=== PATIENT | female | born 1970 | race African-American/Black ===

== ENCOUNTER 2018-01-20 08:01 | Emergency (ER) | payer MEDICAID ==
[~2018-01-20] VITALS: Ht 157.5 cm; Wt 78.2 kg
--- NOTE | 2018-01-20 08:09 | NUR ---
PT AMBULATES TO BED 4
[2018-01-20 08:10] VITALS: BP 146/82
--- NOTE | 2018-01-20 08:15 | NUR ---
47Y/F C/O LLQ PAIN WITH FEELING DIFFUSE BLOATING ALL OVER THE ABDOMEN X 4 DAYS; DENIES NVD; WAS SEEN AT [facility] FOR DIVIRTICULITIS ON 12/23/17 WITH PRESCRIBE "FLAGYL AND MAYBE CIPRO" ON WHICH SHE IS DONE TAKING; HAS BEEN TAKING EX TYLENOL AND GAS X WITH NO RELIEF. PT IS AAOX4, VSS AT THIS TIME, ACTIVE BS X 4 QUAD, LBM THIS MORNING, TENDER WITH TOUCH, BED DOWN, BEDRAIL UP X 1, ER MD AWARE AND NOTIFIED OF PT STATUS. HX; GASTRITIS, HTN, CPOD RX; DONE WITH PRESCRIPTIONS, ADVAIR, LISINOPRIL
[2018-01-20] MEDS ORDERED: NACL 0.9% 1,000 ML IV ONE (08:20)
[2018-01-20] MEDS ORDERED: PANTOPRAZOLE 40 MG INJ VIAL IVP ONE (08:20)
--- NOTE | 2018-01-20 08:22 | NUR ---
Patient being evaluated by physician at bedside.
[2018-01-20 08:35] LABS: HEMATOCRIT 32.7 % (36-48); HEMOGLOBIN 10.2 g/dL (12.0-16.0); MEAN CORPUSCULAR HEMOGLOBIN 26 pg (27-31); MEAN CORPUSCULAR HGB CONC 31 g/dL (33-37); MEAN CORPUSCULAR VOLUME 84.5 fL (80-94); PLATELET COUNT (AUTO) 335 K/uL (140-450); RED BLOOD CELL COUNT(AUTO) 3.87 MIL/uL (4.20-5.40); RED CELL DISTRIBUTION WIDTH 13.4 % (11.6-13.7); WHITE BLOOD COUNT (AUTO) 12.2 K/uL (4.8-10.8)
--- NOTE | 2018-01-20 08:37 | NUR ---
PT TAKEN TO X-RAY
--- NOTE | 2018-01-20 08:43 | NUR ---
PT RETURNED FROM CT
[2018-01-20 08:44] LABS: ANION GAP 13.8 (8-16); CARBON DIOXIDE 27.5 mmol/L (21-32); CREATININE 0.9 mg/dL (0.6-1.3); POTASSIUM 4.3 mmol/L (3.5-5.1)
[2018-01-20 08:50] LABS: ALBUMIN 3.2 g/dL (3.4-5.0); TOTAL BILIRUBIN 0.3 mg/dL (0.0-1.0)
[2018-01-20 08:56] LABS: BASOPHILS % (MANUAL) 0 % (0-2); EOSINOPHILS % (MANUAL) 0 % (0-4); LYMPHOCYTES % (MANUAL) 10 % (20-46); MONOCYTES % (MANUAL) 3 % (5-12)
[2018-01-20] MEDS ORDERED: sulfaSALAzine 500 MG TAB PO ONE (09:30)
[2018-01-20] MEDS ORDERED: metroNIDAZOLE 500 MG/NS PREMIX 100 ML IV ONE (09:30)
[2018-01-20 11:25] VITALS: BP 135/80
--- NOTE | 2018-01-20 11:25 | NUR ---
Patient discharged with v/s stable. Written and verbal after care instructions given and explained. Patient alert, oriented and verbalized understanding of instructions. Ambulatory with steady gait. All questions addressed prior to discharge. ID band removed. Patient advised to follow up with PMD. Rx of FLAGYL, MOTRIN, CIPRO given. Patient educated on indication of medication including possible reaction and side effects. Opportunity to ask questions provided and answered.
== END 2018-01-20 11:25 | disposition home or self-care (01) ==
LOC: MED 08:01
DX: K57.92 Diverticulitis of intestine, part unspecified, without perforation or abscess without bleeding (principal); I10 Essential (primary) hypertension
CPT/HCPCS: 36415; 74176; 80053; 81002; 81025; 85025; 96365; 96375; 99284; C9113; J3490; J7030

== ENCOUNTER 2018-03-06 08:41 | Emergency (ER) | payer BC, MEDICAID ==
[~2018-03-06] VITALS: Ht 157.5 cm; Wt 74.2 kg
[2018-03-06 08:50] VITALS: BP 138/87
[2018-03-06] MEDS ORDERED: predniSONE 20 MG TAB PO ONE (09:05)
[2018-03-06] MEDS ORDERED: ALBUTEROL SULFATE/IPRATROPIU 3 ML SOL IH ONE (09:05)
[2018-03-06] MEDS ORDERED: ALBUTEROL 0.083% 2.5 MG/3 ML NEBU INH ONE (09:05)
[2018-03-06 09:44] VITALS: BP 126/82
== END 2018-03-06 09:45 | disposition home or self-care (01) ==
LOC: MED 08:41
DX: J44.1 Chronic obstructive pulmonary disease with (acute) exacerbation (principal); I10 Essential (primary) hypertension; Z90.710 Acquired absence of both cervix and uterus
CPT/HCPCS: 81002; 81025; 94640; 99283; J7512; J7613; J7620

== ENCOUNTER 2018-06-25 08:05 | Emergency (ER) | payer BC, MEDICAID ==
[~2018-06-25] VITALS: Ht 152.4 cm; Wt 78.0 kg
[2018-06-25 08:11] VITALS: BP 140/90
[2018-06-25] MEDS ORDERED: BENA20TA PO (08:15)
[2018-06-25] MEDS ORDERED: HYDR25TA32 PO (08:16)
--- NOTE | 2018-06-25 08:28 | NUR ---
C/O LLQ/LL BACK PAIN 8/10 DULL/ACHEY X2 DAYS. PT DENIED N/V/D/FEVER, DYSURIA, FREQUENCY. PT REPORTS LBM YESTERDAY WAS HARD. PT HAS A HX OF DIVERTICULOSIS SINCE 2011. PT REPORTS TAKING ADVIL & TYLENOL FOR PAIN WITH NO RELIEF. BOWEL SOUNDS PRESENT X4, ABD IS SOFT/FLAT & TENDER TO LLQ. PT GIVEN GOWN TO CHANGE INTO, BED IN LOW POSITION.
--- NOTE | 2018-06-25 08:35 | NUR ---
ERMD AT BEDSIDE
--- NOTE | 2018-06-25 08:49 | NUR ---
PT SITTING UP IN BED, SPEAKING WITH TELEPSYCH NOW.
--- NOTE | 2018-06-25 08:49 | NUR ---
PT LEFT TO XRAY
--- NOTE | 2018-06-25 08:49 | NUR ---
URINE COLLECTED AND SENT TO LAB
--- NOTE | 2018-06-25 08:58 | NUR ---
PT RETURNED FROM XRAY, LAB AT BEDSIDE
[2018-06-25 09:11] LABS: BASOPHILS % (AUTO) 0.5 % (0.0-2.0); EOSINOPHILS # (AUTO) 0.4 K/uL (0-0.4); HEMATOCRIT 32.6 % (36-48); HEMOGLOBIN 10.5 g/dL (12.0-16.0); LYMPHOCYTES # (AUTO) 1.6 K/uL (2.5-16.5); LYMPHOCYTES % (AUTO) 23.3 % (20.5-51.1); MEAN CORPUSCULAR HEMOGLOBIN 28 pg (27-31); MEAN CORPUSCULAR HGB CONC 32 g/dL (33-37); MEAN CORPUSCULAR VOLUME 85.1 fL (80-94); MONOCYTES # (AUTO) 0.3 K/uL (0.8-1.0); MONOCYTES % (AUTO) 4.4 % (1.7-9.3); NEUTROPHILS # (AUTO) 4.7 K/uL (1.8-7.7); NEUTROPHILS % (AUTO) 66.8 % (42.2-75.2); PLATELET COUNT (AUTO) 347 K/uL (140-450); RED BLOOD CELL COUNT(AUTO) 3.83 MIL/uL (4.20-5.40); RED CELL DISTRIBUTION WIDTH 12.6 % (11.6-13.7)
[2018-06-25 09:12] LABS: APPEARANCE,URINE CLEAR (CLEAR); BILIRUBIN,URINE NEGATIVE (NEGATIVE); BLOOD, URINE NEGATIVE (NEGATIVE); LEUKOCYTE ESTERASE ,URINE NEGATIVE (NEGATIVE); NITRITE, URINE NEGATIVE (NEGATIVE); UGLUCOSE NEGATIVE (NEGATIVE)
[2018-06-25 09:27] LABS: ANION GAP 10.4 (8-16); CARBON DIOXIDE 26.5 mmol/L (21-32); CREATININE 0.9 mg/dL (0.6-1.3); POTASSIUM 3.9 mmol/L (3.5-5.1)
[2018-06-25 09:33] LABS: ALBUMIN 3.4 g/dL (3.4-5.0); TOTAL BILIRUBIN 0.2 mg/dL (0.0-1.0)
[2018-06-25 09:55] LABS: COLOR,URINE YELLOW (YELLOW); RBC,URINE NONE SEEN /HPF (0-5); WBC,URINE 0-5 /HPF (0-5)
--- NOTE | 2018-06-25 10:13 | NUR ---
PT RESTING IN BED, NO NEW NEEDS AT THIS TIME. PAIN IS 5/10 AT THIS TIME.
[2018-06-25] MEDS ORDERED: ACETAMINOPHEN 325 MG TAB PO ONE (10:30)
--- NOTE | 2018-06-25 10:43 | NUR ---
PO MEDS GIVEN-NADR AT THIS TIME
[2018-06-25 10:45] VITALS: BP 132/88
--- NOTE | 2018-06-25 10:57 | NUR ---
Patient discharged with v/s stable. Written and verbal after care instructions given and explained. Patient alert, oriented and verbalized understanding of instructions. Ambulatory with steady gait. All questions addressed prior to discharge. ID band removed. Patient advised to follow up with PMD. Rx of magnesium,miralax,acetaminophen given. Patient educated on indication of medication including possible reaction and side effects. Opportunity to ask questions provided and answered.
== END 2018-06-25 10:57 | disposition home or self-care (01) ==
LOC: MED 08:05
DX: K59.00 Constipation, unspecified (principal); J45.909 Unspecified asthma, uncomplicated; I10 Essential (primary) hypertension; Z79.899 Other long term (current) drug therapy
CPT/HCPCS: 36415; 74021; 80053; 81001; 81025; 83690; 84703; 85025; 99284

== ENCOUNTER 2018-06-29 07:46 | Emergency (ER) | payer MEDICAID ==
[~2018-06-29] VITALS: Ht 152.4 cm; Wt 78.6 kg
[~2018-06-29 07:46] MED LIST: BENA20TA PO; HYDR25TA32 PO
[2018-06-29 07:50] VITALS: BP 142/92
--- NOTE | 2018-06-29 07:55 | NUR ---
PT AMBULATED TO BED 1 AT THIS TIME.
--- NOTE | 2018-06-29 07:58 | NUR ---
PATIENT PRESENTS TO ED WITH C/O EPIGASTRI PAIN AND LLQ PAIN THAT RADIATES TO BACK SINCE LAST SUNDAY. PT SEEN HERE IN THIS ER ON SUNDAY 06/25 AND DIAGNOSED WITH CONSTIPATION. PT STATES SHE HAS BEEN TAKING HER MEDICATIONS PRESCRIBED WITH NO RELIEF. PT RETURNS TODAY WITH C/O PAIN 09/21 WITH NAUSEA AND VOMITING X 1 DAY. PT SKIN IS PINK/WARM/DRY; AAOX4 WITH EVEN AND STEADY GAIT; LUNGS CLEAR BL; PT POSITIONED FOR COMFORT; HOB ELEVATED; BEDRAILS UP X2; BED DOWN. WAITING ER MD EVALUATION
[2018-06-29] MEDS ORDERED: NACL 0.9% 1,000 ML IV ONE (08:25)
[2018-06-29] MEDS ORDERED: ONDANSETRON 4 MG/2 ML VIAL IVP ONE (08:25)
[2018-06-29] MEDS ORDERED: KETOROLAC 30 MG/ML VIAL IVP ONE (08:25)
[2018-06-29 08:48] LABS: BASOPHILS % (AUTO) 0.3 % (0.0-2.0); EOSINOPHILS # (AUTO) 0.3 K/uL (0-0.4); HEMATOCRIT 34.4 % (36-48); HEMOGLOBIN 11.2 g/dL (12.0-16.0); LYMPHOCYTES # (AUTO) 1.3 K/uL (2.5-16.5); LYMPHOCYTES % (AUTO) 26.4 % (20.5-51.1); MEAN CORPUSCULAR HEMOGLOBIN 28 pg (27-31); MEAN CORPUSCULAR HGB CONC 33 g/dL (33-37); MEAN CORPUSCULAR VOLUME 84.4 fL (80-94); MONOCYTES # (AUTO) 0.3 K/uL (0.8-1.0); MONOCYTES % (AUTO) 6.5 % (1.7-9.3); NEUTROPHILS % (AUTO) 60.8 % (42.2-75.2); PLATELET COUNT (AUTO) 328 K/uL (140-450); RED BLOOD CELL COUNT(AUTO) 4.08 MIL/uL (4.20-5.40); RED CELL DISTRIBUTION WIDTH 13.1 % (11.6-13.7)
--- NOTE | 2018-06-29 09:00 | NUR ---
REPORT RECIEVED FROM JORGE ROCA
[2018-06-29 09:05] LABS: ALBUMIN 3.3 g/dL (3.4-5.0); ANION GAP 11.4 (8-16); CARBON DIOXIDE 27.9 mmol/L (21-32); CREATININE 0.9 mg/dL (0.6-1.3); POTASSIUM 4.3 mmol/L (3.5-5.1); TOTAL BILIRUBIN 0.3 mg/dL (0.0-1.0)
--- NOTE | 2018-06-29 09:10 | NUR ---
PT RETURNED FROM CT, FLUIDS RE-STARTED
--- NOTE | 2018-06-29 10:37 | NUR ---
Patient discharged with v/s stable. Written and verbal after care instructions given and explained. Patient alert, oriented and verbalized understanding of instructions. Ambulatory with steady gait. All questions addressed prior to discharge. ID band removed. Patient advised to follow up with PMD. Rx of TRAMADOL, ZOFRAN, MOTRIN, AND CIPRO given. Patient educated on indication of medication including possible reaction and side effects. Opportunity to ask questions provided and answered.
[2018-06-29 10:38] VITALS: BP 158/85
== END 2018-06-29 10:37 | disposition home or self-care (01) ==
LOC: MED 07:46
DX: K57.90 Diverticulosis of intestine, part unspecified, without perforation or abscess without bleeding (principal); J44.9 Chronic obstructive pulmonary disease, unspecified; I10 Essential (primary) hypertension; Z79.899 Other long term (current) drug therapy
CPT/HCPCS: 36415; 74176; 80053; 81002; 81025; 85025; 96361; 96374; 96375; 99284; J1885; J2405; J7030

== ENCOUNTER 2018-10-14 06:25 | Emergency (ER) | payer MEDICAID ==
[~2018-10-14] VITALS: Ht 172.7 cm; Wt 77.1 kg
[2018-10-14 06:30] VITALS: BP 129/82
--- NOTE | 2018-10-14 06:30 | NUR ---
TO BED # 04 AMBULATORY
--- NOTE | 2018-10-14 06:55 | NUR ---
48 Y/O FEMALE CAME TO ER C/O LEFT SIDE ABDOMINAL PAIN X5 DAYS. PAIN LEVEL IS 7/10, DULL CONSTANT PAIN. PT. ALTERNATING BETWEEN TYLENOL AND IBUPROFEN WITHOUT ANY RELIEF. ABDOMEN IS SOFT, ROUND. LAST BM WAS TODAY 10/14/18. PT. HAS NAUSEA. DENIES VOMITING AND DIARRHEA. ALLERGIES:NKDA PMH: ASTHMA; HTN; DIVERTICULITIS MEDS: ALBUTEROL, HYDROCHLORTHIAZIDE, AND BENAZEPRIL
--- NOTE | 2018-10-14 07:09 | NUR ---
RECEIVED REPORT FROM ISHAAN ROCA.
[2018-10-14] MEDS ORDERED: NACL 0.9% 1,000 ML IV SCH (07:19)
[2018-10-14] MEDS ORDERED: KETOROLAC 30 MG/ML VIAL IVP ONE (07:20)
[2018-10-14] MEDS ORDERED: ONDANSETRON 4 MG/2 ML VIAL IVP ONE (07:20)
--- NOTE | 2018-10-14 07:44 | NUR ---
PT SIGNED INFORMED CONSENT FOR TRANSFER AND ABD CT W/ IV DYE. PT BEING TRANSFERED FOR CT.
[2018-10-14 08:06] LABS: BASOPHILS # (AUTO) 0.1 K/uL (0.00-0.22); BASOPHILS % (AUTO) 0.7 % (0.0-2.0); EOSINOPHILS # (AUTO) 0.1 K/uL (0-0.4); EOSINOPHILS % (AUTO) 1.7 % (0.0-4.0); HEMATOCRIT 37.6 % (36-48); HEMOGLOBIN 12.3 g/dL (12.0-16.0); LYMPHOCYTES # (AUTO) 1.6 K/uL (2.5-16.5); LYMPHOCYTES % (AUTO) 21.8 % (20.5-51.1); MEAN CORPUSCULAR HEMOGLOBIN 28 pg (27-31); MEAN CORPUSCULAR HGB CONC 33 g/dL (33-37); MEAN CORPUSCULAR VOLUME 84.8 fL (80-94); MONOCYTES # (AUTO) 0.3 K/uL (0.8-1.0); MONOCYTES % (AUTO) 3.8 % (1.7-9.3); NEUTROPHILS # (AUTO) 5.3 K/uL (1.8-7.7); PLATELET COUNT (AUTO) 326 K/uL (140-450); RED BLOOD CELL COUNT(AUTO) 4.44 MIL/uL (4.20-5.40); WHITE BLOOD COUNT (AUTO) 7.4 K/uL (4.8-10.8)
--- NOTE | 2018-10-14 08:20 | NUR ---
PT RETURNED FROM X-RAY. NS BOLUS RUNNING, PT TOLERATING WELL, NO EDEMA, LUNG SOUNDS CLEAR. PT REPORTSSHARP NON-RADIATING LT ABD PAIN AT 4/10 THAT INCREASES W/ MOVEMENT, STATES PAIN IS TOLERABLE. DENIES NAUSEA AT THIS TIME. VSS
--- NOTE | 2018-10-14 09:05 | NUR ---
Dr. Leary re-evaluating patient at bedside.
--- NOTE | 2018-10-14 09:54 | NUR ---
PT STATES THAT PAIN IS COMMING BACK, REPORTS INTERMITENT SHARP LT SIDED ABD PAIN AT 08/21, PT ASKED FOR MORE TORADOL, ER MD MADE AWARE. PT DENIES NAUSEA AT THIS TIME. VSS
[2018-10-14 09:58] LABS: ANION GAP 10.2 (8-16); CARBON DIOXIDE 30.3 mmol/L (21-32); POTASSIUM 3.5 mmol/L (3.5-5.1)
[2018-10-14 09:59] LABS: ALBUMIN 3.2 g/dL (3.4-5.0); TOTAL BILIRUBIN 0.3 mg/dL (0.0-1.0)
[2018-10-14] MEDS ORDERED: KETOROLAC 15 MG/ML VIAL IVP ONE (10:15)
--- NOTE | 2018-10-14 10:28 | NUR ---
Patient taken to [facility] by [facility] for wait and return CT scan.
--- NOTE | 2018-10-14 11:47 | NUR ---
Patient returned from [facility] following completion of CT scan. RN re-evaluating patient at bedside.
--- NOTE | 2018-10-14 12:11 | NUR ---
PT RETURNED FROM CT, RESTING IN BED WITH EYES OPEN, REPORTS PAIN AT 5/10 WHEN LAYING STILL, PAIN INCREASES W/ MOVEMENT. PT STATES SHE FEELS URGE TO HAVE BM, BUT IS INABLE TO DO SO. VSS.
[2018-10-14 14:27] VITALS: BP 112/68
--- NOTE | 2018-10-14 14:27 | NUR ---
Patient discharged with v/s stable. Written and verbal after care instructions given and explained. Patient alert, oriented and verbalized understanding of instructions. Ambulatory with steady gait. All questions addressed prior to discharge. ID band removed. Patient advised to follow up with PMD. Rx of COLACE/SENNA given. Patient educated on indication of medication including possible reaction and side effects. Opportunity to ask questions provided and answered.
== END 2018-10-14 14:27 | disposition home or self-care (01) ==
LOC: MED 06:25
DX: K59.00 Constipation, unspecified (principal); J44.9 Chronic obstructive pulmonary disease, unspecified; I10 Essential (primary) hypertension; Z79.899 Other long term (current) drug therapy
CPT/HCPCS: 36415; 74021; 80053; 81002; 81025; 82150; 83690; 85025; 96361; 96374; 96375; 99284; J1885; J2405; J7030

== ENCOUNTER 2019-04-07 09:51 | Emergency (ER) | payer MEDICAID ==
[~2019-04-07] VITALS: Ht 152.4 cm; Wt 79.8 kg
[2019-04-07 09:56] VITALS: BP 140/76
--- NOTE | 2019-04-07 10:02 | NUR ---
PT AMBULATED TO BED 07 WITH STEADY GAIT
--- NOTE | 2019-04-07 10:25 | NUR ---
Eunice vazquez in [facility] - 04/07/19 at [email or web address] CAICEDO AT BEDSIDE EXAMINING PT
--- NOTE | 2019-04-07 10:30 | NUR ---
48 Y/O FEMALE C/O RIGHT WRIST PAIN X 8 DAYS THAT RADIATES UP HER RIGHT ARM. PT TOOK 3 ALEVE THIS AM AROUND 5AM . PT DENIES ANY TRAUMA AND STATES HER CARPAL TUNNEL FLARRED UP AND SHE HAS BEEN TAKING OTC MEDICATION FOR PAIN RELIEF WITH MINIMAL RELIEF. PT HAS BRACE ON RIGHT WRIST, WHICH PROVIDES SOME PAIN RELIEF. PT AMBULATED TO BED WITH STEADY GAIT. BED LOW AND LOCKED, 1 SIDERAIL UP. VSS. MEDICAL HX: HTN/COPD/TUBAL LIGATION IN 2007/PARTIAL HYSTERECTOMY 2017/DIVERTICULOSIS
[2019-04-07] MEDS ORDERED: KETOROLAC 60 MG/2 ML VIAL IM ONE (11:10)
--- NOTE | 2019-04-07 11:21 | NUR ---
PT AMBULATED TO RESTROOM WITH STEADY GAIT
--- NOTE | 2019-04-07 11:56 | NUR ---
STATES DECREASE IN PAIN AFTER MEDICATION
[2019-04-07 12:02] VITALS: BP 138/80
--- NOTE | 2019-04-07 12:04 | NUR ---
Patient discharged with v/s stable. Written and verbal after care instructions given and explained. Patient alert, oriented and verbalized understanding of instructions. Ambulatory with steady gait. All questions addressed prior to discharge. ID band removed. Patient advised to follow up with PMD. Rx of MOTRIN AND NORCO given. Patient educated on indication of medication including possible reaction and side effects. Opportunity to ask questions provided and answered.
== END 2019-04-07 12:04 | disposition home or self-care (01) ==
LOC: MED 09:51
DX: M25.531 Pain in right wrist (principal); J44.9 Chronic obstructive pulmonary disease, unspecified; I10 Essential (primary) hypertension; F12.90 Cannabis use, unspecified, uncomplicated; Z90.710 Acquired absence of both cervix and uterus; Z98.890 Other specified postprocedural states; Z79.899 Other long term (current) drug therapy
CPT/HCPCS: 96372; 99283; J1885

== ENCOUNTER 2019-12-29 10:15 | Emergency (ER) | payer MEDICAID ==
[~2019-12-29] VITALS: Ht 152.4 cm; Wt 77.1 kg
[2019-12-29 10:18] VITALS: BP 131/76
--- NOTE | 2019-12-29 10:25 | NUR ---
PT C/O SOB, UPPER BACK PAIN, AND PRODUCTIVE COUGH WITH WHITE/THICK PHLEGM FOR ABOUT 2 WEEKS AND WORSEDED FOR THE PAST 4 DAYS. PT STATES SHE HAS BEEN USING HER ALBUTEROL INHALER CONSISTENTLY W/O ANY RELIEF FOR THE PAST TWO WEEKS. OTHERWISE, PT DENIES ANY FEVER, CP, N/V/D. REPORT POSSIBLE SICK CONTACT OF COVID POSITIVE. PMH: ASTHMA, HTN
--- NOTE | 2019-12-29 10:32 | NUR ---
PATIENT AMBULATED TO BED 10
[2019-12-29] MEDS ORDERED: predniSONE 20 MG TAB PO ONE (10:50)
[2019-12-29 11:48] VITALS: BP 123/61
--- NOTE | 2019-12-29 11:48 | NUR ---
Patient discharged with v/s stable. Written and verbal after care instructions given and explained. Patient alert, oriented and verbalized understanding of instructions. Ambulatory with steady gait. All questions addressed prior to discharge. ID band removed. Patient advised to follow up with PMD. Rx of Albuterol and Prednisone given. Patient educated on indication of medication including possible reaction and side effects. Opportunity to ask questions provided and answered.
== END 2019-12-29 11:48 | disposition home or self-care (01) ==
LOC: MED 10:15
DX: J44.1 Chronic obstructive pulmonary disease with (acute) exacerbation (principal); I10 Essential (primary) hypertension; Z79.899 Other long term (current) drug therapy
CPT/HCPCS: 99283; J7512

== ENCOUNTER 2020-03-15 10:30 | Emergency (ER) | payer MEDICAID ==
[~2020-03-15] VITALS: Ht 157.5 cm; Wt 77.1 kg
[2020-03-15 10:40] VITALS: BP 123/78
--- NOTE | 2020-03-15 11:38 | NUR ---
49 YEAR OLD FEMALE COMPLAINS OF BILATERAL KNEE PAIN X 1 YEAR WITH EXACERBATION TODAY. PATIENT VEBRALIZED "FEELS LIKE A RUBBER BANDINSIDE MY KNEES. IT IS HARD TO FLEX MY KNEES". PT VERNALIZED TAKING A FALL THIS MORNING DUE TO LEFT "KNEE GIVING OUT". 10/10 PAIN WITH NO RELIEF. BILATERAL KNEES VISIBLY SWOLLEN. 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 AO4, BREATHING EVEN AND UNLABORED, SKIN WARM AND DRY. BED IN LOWEST POSITION, LOCKED, X1 SIDERAIL UP. PMH - HTN, COPD, ASTHMA, MIGRAINES, PARTIAL HYSTERECTOMY NKA
[2020-03-15 12:11] VITALS: BP 123/78
--- NOTE | 2020-03-15 12:11 | NUR ---
Patient discharged with v/s stable. Written and verbal after care instructions given and explained. Patient alert, oriented and verbalized understanding of instructions. Ambulatory with steady gait. All questions addressed prior to discharge. ID band removed. Patient advised to follow up with PMD. Rx of Piercy 5mg-325mg and Ibuprofen 600mg was given. Patient educated on indication of medication including possible reaction and side effects. Opportunity to ask questions provided and answered.
== END 2020-03-15 12:11 | disposition home or self-care (01) ==
LOC: MED 10:30
DX: M25.561 Pain in right knee (principal); M25.562 Pain in left knee; J44.9 Chronic obstructive pulmonary disease, unspecified; I10 Essential (primary) hypertension; Z79.899 Other long term (current) drug therapy
CPT/HCPCS: 99283

== ENCOUNTER 2020-07-28 04:48 | Emergency (ER) | payer MEDICAID ==
[~2020-07-28] VITALS: Ht 152.4 cm; Wt 78.5 kg
[2020-07-28 04:52] VITALS: BP 130/76
--- NOTE | 2020-07-28 05:00 | NUR ---
PT BIB SELF FOR C/O 09/21 LLQ PAIN X 5 DAYS. PT STATES HX OF DIVERTICULITUS, STATING " I THINK IM HAVING A FLARE UP." PT DX WITH DIVERTICULITIS IN 2011. PT REPORTS NAUSEA, DENIES VOMITING OR DIARRHEA. PT REPORTS "STRAINING" WITH BOWEL MOVEMENT YESTERDAY, WHICH MADE THE PAIN WORSE. PT REPORTS TAKING IBUPROFEN 600MG RX WITH NO RELIEF. PT DENIES FEVER, CHILLS, CP OR SOB. MED HX: DIVERTICULITIS, COPD, ASTHMA, HTN ALLERGIES: NKA
--- NOTE | 2020-07-28 05:05 | NUR ---
ERMD AT BEDSIDE.
[2020-07-28] MEDS ORDERED: NACL 0.9% 1,000 ML IV ONE (05:10)
[2020-07-28] MEDS ORDERED: ONDANSETRON 4 MG/2 ML VIAL IVP ONE (05:10)
[2020-07-28 05:32] LABS: BASOPHILS % (AUTO) 0.2 % (0.0-2.0); EOSINOPHILS # (AUTO) 0.2 K/uL (0-0.4); EOSINOPHILS % (AUTO) 2.2 % (0.0-4.0); HEMATOCRIT 31.9 % (36-48); HEMOGLOBIN 10.5 g/dL (12.0-16.0); LYMPHOCYTES # (AUTO) 1.7 K/uL (2.5-16.5); LYMPHOCYTES % (AUTO) 15.5 % (20.5-51.1); MEAN CORPUSCULAR HEMOGLOBIN 28 pg (27-31); MEAN CORPUSCULAR HGB CONC 33 g/dL (33-37); MEAN CORPUSCULAR VOLUME 85.4 fL (80-94); MONOCYTES # (AUTO) 0.5 K/uL (0.8-1.0); MONOCYTES % (AUTO) 4.7 % (1.7-9.3); NEUTROPHILS # (AUTO) 8.5 K/uL (1.8-7.7); NEUTROPHILS % (AUTO) 77.4 % (42.2-75.2); PLATELET COUNT (AUTO) 378 K/uL (140-450); RED BLOOD CELL COUNT(AUTO) 3.74 MIL/uL (4.20-5.40); RED CELL DISTRIBUTION WIDTH 12.7 % (11.6-13.7)
--- NOTE | 2020-07-28 05:55 | NUR ---
PT REPORTS PAIN 09/21, ERMD MADE AWARE. AWAITING NEW ORDERS.
[2020-07-28 05:57] LABS: ALBUMIN 3.4 g/dL (3.4-5.0); ANION GAP 13.7 (8-16); CARBON DIOXIDE 23.2 mmol/L (21-32); CREATININE 1.2 mg/dL (0.6-1.3); POTASSIUM 3.9 mmol/L (3.5-5.1); TOTAL BILIRUBIN 0.3 mg/dL (0.0-1.0)
[2020-07-28] MEDS ORDERED: MORPHINE SULFATE 4 MG/ML SYR IVP ONE (06:00)
[2020-07-28] MEDS ORDERED: ACETAMINOPHEN EXTRA STRENGTH 500 MG TAB PO ONE (06:10)
[2020-07-28] MEDS ORDERED: PIPERACILLIN/TAZOBACTAM 3.375 GM in DEXTROSE 5% 50 ML IV ONE (06:10)
[2020-07-28] MEDS ORDERED: PIPERACILLIN/TAZOBACTAM 3.375 GM VIAL IV ONE (06:13)
--- NOTE | 2020-07-28 07:09 | NUR ---
REPORT GIVEN TO CHANELLE JAFFE FOR CONTINUITY OF CARE.
[2020-07-28] MEDS ORDERED: METR500T1 PO (07:18)
[2020-07-28] MEDS ORDERED: CIPR250T6 PO (07:18)
--- NOTE | 2020-07-28 07:35 | NUR ---
Patient discharged with v/s stable. Written and verbal after care instructions given and explained. Patient alert, oriented and verbalized understanding of instructions. Ambulatory with steady gait. All questions addressed prior to discharge. ID band removed. Patient advised to follow up with PMD. Rx of Ciprofloxacin and Flagyl given. Patient educated on indication of medication including possible reaction and side effects. Opportunity to ask questions provided and answered.
[2020-07-28 07:36] VITALS: BP 112/91
== END 2020-07-28 07:35 | disposition home or self-care (01) ==
LOC: MED 04:48
DX: K57.92 Diverticulitis of intestine, part unspecified, without perforation or abscess without bleeding (principal); R11.0 Nausea; J44.9 Chronic obstructive pulmonary disease, unspecified; I10 Essential (primary) hypertension; Z79.899 Other long term (current) drug therapy
CPT/HCPCS: 36415; 74176; 80053; 83690; 85025; 96361; 96365; 96375; 99284; J2405; J2543; J7030